=== PATIENT | female | born 1980 | race Caucasian/White ===

== ENCOUNTER 2019-09-07 09:45 | Inpatient (IN) | payer OTHER ==
[~2019-09-07] VITALS: Ht 160 cm; Wt 92.7 kg
[2019-09-07 09:54] VITALS: Ht 160 cm; Wt 92.7 kg
[2019-09-07 10:50] LABS: microscopic required? YES; urine erythrocyte 3+ (NEGATIVE)
[2019-09-07 11:00] LABS: CALCIUM 8.6 mg/dL (8.5-10.1); CARBON DIOXIDE 27.6 mmol/L (21-32); CHLORIDE SERUM 105 mmol/L (98-107); CREATININE SERUM 0.6 mg/dL (0.6-1.0); GFR1 > 60 mL/min; GLUCOSE SERUM 117 mg/dL (74-106); POTASSIUM SERUM 3.4 mmol/L (3.5-5.1); SODIUM SERUM 143 mmol/L (136-145)
[2019-09-07 11:01] LABS: BASOPHIL % 0.3 % (0-2); PLATELET COUNT 185 x10^3mcL (130-400)
[2019-09-07 11:02] LABS: RED CELL DISTRIBUTION WIDTH 15.9 % (11.5-14.5)
[2019-09-07 11:04] LABS: ALBUMIN 3.4 g/dL (3.4-5.0); ALKALINE PHOSPHATASE 75 U/L (46-116); ALT/SGPT 27 U/L (14-59); AST/SGOT 17 U/L (15-37); BILIRUBIN TOTAL 0.8 mg/dL (0.20-1.00)
[2019-09-07] MEDS ORDERED: HORIZANT300 MG PO (12:56)
[2019-09-07 13:52] VITALS: BP 101/60
[2019-09-07 20:31] VITALS: BP 95/40
[2019-09-07 21:30] VITALS: BP 96/50
[2019-09-08 05:45] VITALS: BP 96/57
[2019-09-08 06:28] LABS: BASOPHIL % 0.5 % (0-2); PLATELET COUNT 176 x10^3mcL (130-400)
[2019-09-08 06:38] LABS: CALCIUM 8.7 mg/dL (8.5-10.1); CARBON DIOXIDE 28.7 mmol/L (21-32); CHLORIDE SERUM 107 mmol/L (98-107); CREATININE SERUM 0.6 mg/dL (0.6-1.0); GFR1 > 60 mL/min; GLUCOSE SERUM 89 mg/dL (74-106); POTASSIUM SERUM 3.9 mmol/L (3.5-5.1); SODIUM SERUM 142 mmol/L (136-145)
[2019-09-08 07:51] LABS: RED CELL DISTRIBUTION WIDTH 16.2 % (11.5-14.5)
[2019-09-08 08:26] VITALS: BP 93/46
[2019-09-08] MEDS ORDERED: ZOVIRAX400 MG PO (08:40)
[2019-09-08 09:19] VITALS: BP 93/46
== END 2019-09-08 10:14 | disposition home or self-care (01) | DRG 48 ==
LOC: ED 09:45 → DU 12:28
PROVIDERS: Emergency Medicine; ADMIT Family Medicine
DX: G51.0 Bell's palsy (principal); E87.1 Hypo-osmolality and hyponatremia; G50.0 Trigeminal neuralgia; Z86.73 Personal history of transient ischemic attack (TIA), and cerebral infarction without residual deficits
CPT/HCPCS: 90658; 97116-GP; G0378; Q9967